=== PATIENT | male | born 1970 | race American Indian/Alaskan Native ===

== ENCOUNTER → 2024-03-03 08:12 | Outpatient (CLI) | payer OTHER, SELFPAY ==
[2024-03-03 13:55] LABS: Testosterone 333 ng/dL (71.8-623)
== END ==
PROVIDERS: PCP Family Medicine; Referring Provider Urology; Visit Provider Urology
DX: R68.82 Decreased libido (principal)
CPT/HCPCS: 36415; 84403

== ENCOUNTER → 2024-03-10 08:45 | Outpatient (CLI) | payer OTHER, SELFPAY ==
[2024-03-10 11:34] LABS: Testosterone 203 ng/dL (71.8-623)
== END ==
PROVIDERS: PCP Family Medicine; Referring Provider Urology; Visit Provider Urology
DX: R68.82 Decreased libido (principal)
CPT/HCPCS: 36415; 84403